=== PATIENT | male | born 1990 | race Caucasian/White ===

== ENCOUNTER → 2022-12-29 | Outpatient (CLI) | payer OTHER ==
[~2022-12-29] MED LIST: IBUP-1022 PO
== END ==
LOC: M RAD 15:53
PROVIDERS: ATTEND Physician Assistant
DX: M25.531 Pain in right wrist (principal)

== ENCOUNTER 2022-12-30 16:30 | Emergency (ER) | payer OTHER ==
[~2022-12-30] VITALS: Ht 182.9 cm; Wt 104.5 kg
[2022-12-30 16:30] VITALS: BP 158/99; TEMP 98.1; O2SAT 98
[2022-12-30] MEDS ORDERED: IBUPROFEN 600MG TAB PO ONE (18:50)
[2022-12-30] MEDS ORDERED: IBUP-1022 PO (20:01)
== END 2022-12-30 20:12 | disposition home or self-care (01) ==
LOC: M ED 16:30
DX: S63.501A Unspecified sprain of right wrist, initial encounter (principal); W51.XXXA Accidental striking against or bumped into by another person, initial encounter; Y92.009 Unspecified place in unspecified non-institutional (private) residence as the place of occurrence of the external cause; Z79.1 Long term (current) use of non-steroidal anti-inflammatories (NSAID)